=== PATIENT | female | born 1980 | race Caucasian/White ===

== ENCOUNTER 2017-04-27 13:51 | Emergency (ER) | payer OTHER ==
[~2017-04-27] VITALS: Ht 165.1 cm; Wt 57.5 kg
[~2017-04-27 13:51] MED LIST: ACET500T98 PO
[2017-04-27 14:06] VITALS: Ht 165.1 cm; Wt 57.5 kg
[2017-04-27 16:51] LABS: URINE BLOOD (Dip) POC 2+ (NEGATIVE)
--- NOTE | 2017-04-27 17:30 | ERD ---
ER Documentation Chief Complaint Date/Time DATE: 04/27/17 TIME: 17:29 Chief Complaint VAG BLEED SINCE YESTERDAY 3 WEEKS PER PATIENT HPI This a 36-year-old female presents the emergency department today complaining of vaginal bleeding that started last night. States she is approximately 3 weeks . States her last mental period was March 18, 2017. States she took home test that stated it was positive. Denies any abdominal pain , vomiting, fevers or chills ROS All systems reviewed and are negative except as per history of present illness. Medications Home Meds Active Scripts Acetaminophen* (Tylophen*) 500 Mg Capsule, 1 CAP PO Q6H Y for PAIN AND OR ELEVATED TEMP, #30 CAP Prov:MINOR CRUZ PA-C 04/27/17 Cephalexin* (Keflex*) 500 Mg Capsule, 500 MG PO QID for 7 Days, CAP Prov:MINOR CRUZ PA-C 04/27/17 Acetaminophen (Tylenol) 500 Mg Tab, 500 MG PO Q6 Y for PAIN LEVEL 1-5 for 10 Days, TAB Prov:MANAGUELOD,NICHOLAS P ENGINE REPAIR SUPERVISOR 05/10/16 Allergies Allergies: Coded Allergies: No Known Allergy (Unverified , 04/27/17) PMhx/Soc Medical and Surgical Hx: pt denies Medical Hx, pt denies Surgical Hx Hx Alcohol Use: No Hx Substance Use: No Hx Tobacco Use: Yes Smoking Status: Never smoker Physical Exam Vitals Vital Signs Date Time Temp Pulse Resp B/P Pulse Ox O2 Delivery O2 Flow Rate FiO2 04/27/17 14:06 97.8 104 18 107/62 100 Physical Exam Const: No acute distress Head: Atraumatic Eyes: Normal Conjunctiva ENT: Normal External Ears, Nose and Mouth. Neck: Full range of motion..~ No meningismus. Resp: Clear to auscultation bilaterally Cardio: Regular rate and rhythm, no murmurs Abd: Soft, non tender, non distended. Normal bowel sounds Skin: No petechiae or rashes Back: No midline or flank tenderness Ext: No cyanosis, or edema Neur: Awake and alert Psych: Normal Mood and Affect Result Diagram: 04/27/17 3301 Results 24 hrs Laboratory Tests Test 04/27/17 16:56 04/27/17 17:26 Bedside Urine pH (LAB) 5.5 Bedside Urine Protein (LAB) Trace Bedside Urine Glucose (UA) Negative Bedside Urine Ketones (LAB) Negative Bedside Urine Blood 2+ Bedside Urine Nitrite (LAB) Positive Bedside Urine Leukocyte Esterase (L Negative White Blood Count 9.510^3/ul Red Blood Count 4.7010^6/ul Hemoglobin 14.1g/dl Hematocrit 43.6% Mean Corpuscular Volume 92.8fl Mean Corpuscular Hemoglobin 30.0pg Mean Corpuscular Hemoglobin Concent 32.3g/dl Red Cell Distribution Width 12.2% Platelet Count 62828^3/UL Mean Platelet Volume 10.1fl Neutrophils % 58.4% Lymphocytes % 31.0% Monocytes % 8.8% Eosinophils % 1.2% Basophils % 0.3% Nucleated Red Blood Cells % 0.0/100WBC Neutrophils # 5.510^3/ul Lymphocytes # 2.910^3/ul Monocytes # 0.810^3/ul Eosinophils # 0.110^3/ul Basophils # 0.010^3/ul Nucleated Red Blood Cells # 0.010^3/ul Beta HCG, Quantitative 89498.0mIU/ml DIAGNOSTIC IMAGING REPORT Patient: MERNA WILKS : 1980 Age: 36 Sex: F MR #: [id number] DOS: 04/27/17 1652 Ordering MD: MINOR CRUZ PA-C Location: [facility] Room/Bed: PROCEDURE: OBSTETRICAL ULTRASOUND WITH ENDOVAGINAL IMAGES CLINICAL INDICATION: Vaginal Bleed () TECHNIQUE: Multiple sonographic images of the pelvis were obtained utilizing a transabdominal and endovaginal technique. The images were reviewed on a PACS workstation. COMPARISON: None. LMP: 03/11/2017 FINDINGS: The uterus is retroverted. There is a single intrauterine with mean sac diameter of 1.67 cm, yolk sac, and crown-rump length of 0.39 cm which is consistent with a gestational age of 6 weeks, 2 days . The estimated date of delivery by ultrasound is 12/19/2017 . The estimated gestational age by LMP is 6 weeks, 5 days . The estimated date of delivery by LMP is 12/16/2017 . There is a large subchorionic hemorrhage adjacent to the gestational sac measuring 3.2 x 1.7 x 2.6 cm. The right ovary is not visualized. The left ovary measures 3.3 x 2.5 x 2.3 cm. There is normal vascular flow in the left ovary. No significant ovarian lesions are seen. No significant pelvic free fluid is identified. IMPRESSION: A possible intrauterine gestational sac is identified with crown-rump length of 0.39 cm which would be consistent with a gestational age of 6 weeks, 2 days and an estimated date of delivery of 12/19/2017. No heart tones are detected. Findings may be due to an early intrauterine although an ectopic and early demise are not entirely excluded. Short-term follow-up ultrasound and serial Beta HCG measurements are recommended for further evaluation. Large 2.2 cm subchorionic hemorrhage. Nonvisualization of the right ovary. RPTAT: EE Physician Bruce Date Time Electronically viewed and signed by Jose Al Physician on 04/27/2017 17:48 RA/ CC: MINOR CRUZ PA-C Procedures/MDM This is a A3 36-year-old female who presents to the emergency department today complaining of vaginal bleeding. Patient states she is approximately 3-4 weeks . I did do a urine test here in the emergency department that was positive. Given this I did obtain a complete OB workup. Laboratory work shows no elevated white blood cell count. She is not anemic. Platelets are within normal limits. UA negative leukocyte esterase positive nitrates 2+ blood. Beta quant hCG 58325.0 Rh status a positive She will be given a prescription for Keflex for urinary tract infection. Ultrasound shows a possible intrauterine gestational sac consistent with a gestational age of 6 weeks and 2 days however there is no heart tones detected. Findings may be due to an early intrauterine although an ectopic and early demise are not entirely excluded. Short-term follow-up ultrasound and serial beta quant measurements are recommended. There is a large 2.2 cm subchorionic hemorrhage. Patient symptoms at this time is consistent with vaginal bleeding in early . Other differentials to consider early normal versus early failed versus placenta previa versus subchorionic hemorrhage. Patient is afebrile and otherwise well-appearing. She has no pelvic or abdominal pain on physical exam I have low suspicion for ectopic , tubo ovarian abscess, ovarian torsion however given patient's recent ultrasound I cannot entirely rule out ectopic I called the patient several times from the waiting room and she did not answer. I located the patient on her cell phone and patient indicated that she left the hospital to go get food. Patient was instructed to return immediately. I have explained the results to the patient. I have explained to the patient that they need to follow-up in 48 hours for a repeat beta quant. I have explained to the patient that they may continue to have vaginal bleeding. Patient understood At this time the patient is stable for discharge and outpatient management. Patient should follow up with their PCP in the next 1-2 days. They may return to the emergency department sooner for any persistent or worsening of symptoms. Patient understood and agreed with the plan. Departure Diagnosis: Primary Impression: Vaginal bleeding in patient at less than 20 weeks gestation Additional Impression: UTI (urinary tract infection) Urinary tract infection type: site unspecified Hematuria presence: with hematuria Qualified Code: N39.0 - Urinary tract infection with hematuria, site unspecified Condition: Fair MINOR CRUZ PA-C Apr 27, 2017 17:30
[2017-04-27 17:35] LABS: BASOPHILS % 0.3 % (0.0-2.0); EOSINOPHILS # 0.1 10^3/ul (0.0-0.5); EOSINOPHILS % 1.2 % (0.0-7.0); HEMATOCRIT 43.6 % (37.0-47.0); HEMOGLOBIN 14.1 g/dl (12.0-16.0); LYMPHOCYTES # 2.9 10^3/ul (0.8-2.9); MEAN CORPUSCULAR HGB CONC 32.3 g/dl (32.0-37.0); MEAN CORPUSCULAR VOLUME 92.8 fl (82.0-101.0); MEAN PLATELET VOLUME 10.1 fl (7.4-10.4); MONOCYTE # 0.8 10^3/ul (0.3-0.9); MONOCYTES % 8.8 % (0.0-11.0); NEUTROPHIL # 5.5 10^3/ul (1.6-7.5); NEUTROPHILS % 58.4 % (39.0-77.0); PLATELET COUNT 307 10^3/UL (140-415); RED CELL DISTRIBUTION WIDTH 12.2 % (11.5-14.5); WHITE BLOOD COUNT 9.5 10^3/ul (4.8-10.8)
--- NOTE | 2017-04-27 17:48 | RADRPT ---
PROCEDURE: OBSTETRICAL ULTRASOUND WITH ENDOVAGINAL IMAGES CLINICAL INDICATION: Vaginal Bleed () TECHNIQUE: Multiple sonographic images of the pelvis were obtained utilizing a transabdominal and endovaginal technique. The images were reviewed on a PACS workstation. COMPARISON: None. LMP: 03/11/2017 FINDINGS: The uterus is retroverted. There is a single intrauterine with mean sac diameter of 1.67 cm, yolk sac, and crown-rump length of 0.39 cm which is consistent with a gestational age of 6 weeks, 2 days . The estimated date of delivery by ultrasound is 12/19/2017 . The estimated gestational age by LMP is 6 weeks, 5 days . The estimated date of delivery by LMP is 12/16/2017 . There is a large subchorionic hemorrhage adjacent to the gestational sac measuring 3.2 x 1.7 x 2.6 c m. The right ovary is not visualized. The left ovary measures 3.3 x 2.5 x 2.3 cm. There is normal vascu lar flow in the left ovary. No significant ovarian lesions are seen. No significant pelvic free fluid is identified. IMPRESSION: A possible intrauterine gestational sac is identified with crown-rump length of 0.39 cm which would be consistent with a gestational age of 6 weeks, 2 days and an estimated date of delivery of 018. No heart tones are detected. Findings may be due to an early intrauterine alt moe an ectopic and early demise are not entirely excluded. Short-term follow-up u ltrasound and serial Beta HCG measurements are recommended for further evaluation. Large 2.2 cm subchorionic hemorrhage. Nonvisualization of the right ovary. RPTAT: EE Physician Bruce Date Time Electronically viewed and signed by Physician Bruce on 04/27/2017 17:48 /
[2017-04-27] MEDS ORDERED: CEPH-443 PO (19:34)
[2017-04-27] MEDS ORDERED: ACET500C5 PO (19:35)
[2017-04-27 19:55] VITALS: BP 126/75; PULSE 76; RESP 19; TEMP 98.4
[2017-05-02 16:11] LABS: URINE BLOOD (Dip) POC 2+ (NEGATIVE)
== END 2017-04-27 19:55 | disposition home or self-care (01) ==
LOC: FTE 13:51
DX: O20.9 Hemorrhage in early pregnancy, unspecified (principal); O23.41 Unspecified infection of urinary tract in pregnancy, first trimester; Z3A.01 Less than 8 weeks gestation of pregnancy
CPT/HCPCS: 36415; 76801; 76817; 81003; 84702; 85025; 86900; 86901

== ENCOUNTER 2017-12-03 20:00 | Inpatient (IN) | END 2017-12-09 14:10 | disposition home or self-care (01) | DRG 766 ==